=== PATIENT | male | born 1995 | race Caucasian/White ===

== ENCOUNTER 2018-11-01 10:25 | Emergency (ER) | payer MEDICAID ==
[~2018-11-01] VITALS: Ht 177.8 cm; Wt 96.6 kg
[2018-11-01 10:34] VITALS: BP_SYST 152
[2018-11-01] MEDS ORDERED: LIDOCAINE 1% 10 MG/ML, 20 ML MDV INJ ONE (11:00)
[2018-11-01 12:05] VITALS: BP_SYST 142
== END 2018-11-01 12:04 | disposition home or self-care (01) ==
LOC: SED 10:25
DX: L60.0 Ingrowing nail (principal); Z91.010 Allergy to peanuts; Z91.013 Allergy to seafood; Z91.030 Bee allergy status; Z91.012 Allergy to eggs; Z88.2 Allergy status to sulfonamides; Z88.0 Allergy status to penicillin
CPT/HCPCS: 11730; 99283; J2001

== ENCOUNTER 2018-11-02 11:29 | Emergency (ER) | payer MEDICAID ==
[~2018-11-02] VITALS: Ht 177.8 cm; Wt 95.3 kg
[2018-11-02 11:30] VITALS: BP_SYST 149
[2018-11-02 12:20] LABS: BASOPHILS % (AUTO) 0.4 % (0.0-2.0); EOSINOPHILS # (AUTO) 0.2 K/uL (0.0-0.4); EOSINOPHILS % (AUTO) 1.8 % (0.0-4.0); HEMATOCRIT 45.1 % (36-54); HEMOGLOBIN 15.1 g/dL (14.0-18.0); LYMPHOCYTES # (AUTO) 1.5 K/uL (1.0-5.5); MEAN CORPUSCULAR HEMOGLOBIN 29 pg (27-31); MEAN CORPUSCULAR HGB CONC 34 % (32-36); MEAN CORPUSCULAR VOLUME 88 fL (79.0-98.0); MONOCYTES # (AUTO) 0.7 K/uL (0.0-1.0); MONOCYTES % (AUTO) 6.1 % (1.7-9.3); NEUTROPHILS # (AUTO) 9.1 K/uL (1.8-7.7); NEUTROPHILS % (AUTO) 78.7 % (40.0-70.0); PLATELET COUNT (AUTO) 375 K/uL (130-430); RED BLOOD CELL COUNT(AUTO) 5.15 MIL/uL (4.2-6.2); RED CELL DISTRIBUTION WIDTH 13.3 % (9.0-15.0); WHITE BLOOD COUNT (AUTO) 11.6 K/uL (4.8-10.8)
[2018-11-02 12:32] LABS: CALCIUM 9.4 mg/dL (8.4-11.0); CREATININE 0.95 mg/dL (0.55-1.30); POTASSIUM 4.2 mmol/L (3.5-5.1)
[2018-11-02 12:38] LABS: ALBUMIN 3.8 g/dL (3.4-4.8); TOTAL BILIRUBIN 0.4 mg/dL (0.0-1.0)
[2018-11-02 13:18] VITALS: BP_SYST 145
== END 2018-11-02 13:15 | disposition home or self-care (01) ==
LOC: SED 11:29
DX: R55 Syncope and collapse (principal); R42 Dizziness and giddiness; Z91.012 Allergy to eggs; Z91.010 Allergy to peanuts; Z91.013 Allergy to seafood; Z91.030 Bee allergy status; Z88.0 Allergy status to penicillin; Z88.2 Allergy status to sulfonamides
CPT/HCPCS: 36415; 80053; 85025; 99283

== ENCOUNTER 2019-04-17 11:07 | Emergency (ER) | payer MEDICAID ==
[~2019-04-17] VITALS: Ht 177.8 cm; Wt 100.7 kg
[2019-04-17 11:29] VITALS: BP_SYST 138
--- NOTE | 2019-04-17 12:30 | NUR ---
Per registration pt [facility]BS
== END 2019-04-17 12:30 | disposition left against medical advice (07) ==
LOC: SED 11:07
DX: N48.89 Other specified disorders of penis (principal); Z53.21 Procedure and treatment not carried out due to patient leaving prior to being seen by health care provider
CPT/HCPCS: 99281; J7030

== ENCOUNTER 2019-04-20 12:45 | Emergency (ER) | payer MEDICAID ==
[~2019-04-20] VITALS: Ht 177.8 cm; Wt 100.7 kg
[2019-04-20 12:45] VITALS: BP_SYST 149
--- NOTE | 2019-04-20 12:45 | NUR ---
BROUGHT BACK TO BED #8 AND TRIAGED. REPORT GIVEN TO VINEET
--- NOTE | 2019-04-20 13:00 | NUR ---
pt came to ER with a lesion on head of penis after unprotected sex. Pt is currently in room resting comfortably, denies pain, awaiting
--- NOTE | 2019-04-20 13:15 | NUR ---
ER at bedside examining patient.
--- NOTE | 2019-04-20 13:20 | NUR ---
Labs drawn at bedside
[2019-04-20 13:47] VITALS: BP_SYST 149
--- NOTE | 2019-04-20 13:48 | NUR ---
Patient given written and verbal discharge instructions and verbalizes understanding. ER MD discussed with patient the results and treatment provided. Patient in stable condition. ID arm band removed. Rx of Doxycycline and triamcinolone given. Patient educated on pain management and to follow up with PMD. Pain Scale 0. Opportunity for questions provided and answered. Medication side effect fact sheet provided.
[2019-04-22 02:16] LABS: CHLAMYDIA TRACHOMATIS NAA Negative (Negative); NEISSERIA GONORRHOEAE NAA Negative (Negative)
--- NOTE | 2019-04-25 19:25 | NUR ---
PT CALLED FOR LAB RESULTS MASSAGE LEFT.
== END 2019-04-20 13:48 | disposition home or self-care (01) ==
LOC: SED 12:45 → EEVIPCON 12:45 → SED 13:48
DX: N48.5 Ulcer of penis (principal); Z88.0 Allergy status to penicillin; Z88.2 Allergy status to sulfonamides; Z91.030 Bee allergy status; Z91.012 Allergy to eggs; Z91.010 Allergy to peanuts; Z91.013 Allergy to seafood
CPT/HCPCS: 36415; 86592; 87491; 87591; 99283